=== PATIENT | female | born 1970 | race Caucasian/White ===

== ENCOUNTER 2020-07-02 14:30 | Emergency (ER) | payer OTHER, SELFPAY ==
[2020-07-02 14:35] VITALS: BP 158/93; PULSE 100; RESP 24; TEMP 36.7; O2SAT 99
--- NOTE | 2020-07-02 14:52 | W.ED.GENAD ---
Discharge Plan Disposition Condition: Stable Discharge Details Chief Complaint: Anxiety Clinical Impression: Anxiety attack, Broken tooth Primary Care Provider: Corin Ernst ED Provider: Kris Brandon Home Meds and New Rx's Prescriptions: New penicillin V potassium 500 mg tablet 500 mg PO QID 10 Days Qty: 40 RF: 0 Continued olanzapine [Zyprexa] 2.5 MG tablet 2.5 mg PO PRN RF: 0 alprazolam [Xanax] 0.5 MG tablet 0.5 mg PO PRN RF: 0 gemfibrozil 600 MG tablet 600 mg PO BID RF: 0 omeprazole [Prilosec] 20 MG capsule,delayed release(DR/EC) 20 mg PO DAILY RF: 0 lamotrigine [Lamictal] 100 MG tablet 100 mg PO DAILY RF: 0 venlafaxine [Effexor XR] 150 MG capsule,extended release 24hr 300 mg PO DAILY RF: 0 metformin 750 MG tablet extended release 24 hr 1,500 mg PO q am RF: 0 nitroglycerin [Nitrostat] 0.4 MG tablet, sublingual 0.4 mg Sublingual ONCE RF: 0 cholecalciferol (vitamin D3) 5,000 UNIT tablet 5,000 unit PO DAILY RF: 0 zolmitriptan [Zomig] 5 MG tablet 5 mg PO PRN Qty: 9 RF: 3 valacyclovir 1 gram tablet 1,000 mg PO BID RF: 0 Discharge Instructions Instructions: Acute Dental Trauma (ED), Anxiety (ED) Additional Instructions: Please take penicillin as prescribed. May use dental wax for comfort. This is nontoxic and not harmful if accidentally swallowed. Warm salt water gargle, swish and spit for comfort. Please call your dentist to make an appointment for follow-up of broken tooth. Return to ER for any acute concerns. Medical Decision Making 49-year-old female who felt that she broke her tooth last night while chewing. Since that time she had left lower molar discomfort and building anxiety feeling that she could not breathe. She took 0.25 mg of Xanax with minimal improvement at home. She stated she became more more worried about that she was having inability to get air through her mouth. No drooling or change to voice. She is able to speak in full sentences. She arrives to the ER quite anxious and mildly tachycardic. Her exam does reveal broken posterior lingual cusp of tooth #18. There is no significant fluctuance present. She was given an additional 0.5 mg of Xanax and observed. She was given dental wax for comfort. I will place her on a course of penicillin for a early apical infection and she will follow-up with dentistry. HPI General Mode of arrival: ambulatory. Date/Time Provider Initiated Documentation: 07/02/20 14:31. Limitations to Documentation: no limitations. Information obtained by: patient. History of Present Illness 49 year old F presents to the emergency department with the chief complaint of Left lower tooth fracture last night, anxiety today, described as moderate, and is localized to the head and mouth. Patient reports no radiation. Patient started experiencing this minute(s) and it has been other (Improving). No relieving factors improve symptom(s), No exacerbating factors reported . Patient notes other (Anxious); denies chest pain, fever/chills, headaches, loss of appetite, nausea/vomiting and syncope. Patient did receive the following treatments prior to arrival, other (Took Xanax 0.25 mg) Related Data Home Medications Medication Instructions Recorded Confirmed alprazolam [Xanax] 0.5 mg PO PRN tab-cap 03/23/14 07/02/20 gemfibrozil 600 mg PO BID tab-cap 03/23/14 07/02/20 lamotrigine [Lamictal] 100 mg PO DAILY tab-cap 03/23/14 07/02/20 olanzapine [Zyprexa] 2.5 mg PO PRN tab-cap 03/23/14 07/02/20 omeprazole [Prilosec] 20 mg PO DAILY tab-cap 03/23/14 07/02/20 venlafaxine [Effexor XR] 300 mg PO DAILY tab-cap 07/06/15 07/02/20 metformin 1,500 mg PO q am tab-cap 11/17/15 07/02/20 cholecalciferol (vitamin D3) 5,000 unit PO DAILY 08/21/17 07/02/20 nitroglycerin [Nitrostat] 0.4 mg SUBLINGUAL ONCE tab-cap 08/21/17 07/02/20 zolmitriptan [Zomig] 5 mg PO PRN #9 tab-cap 05/13/18 07/02/20 penicillin V potassium 500 mg PO QID 10 Days #40 tab 07/02/20 valacyclovir 1,000 mg PO BID 07/02/20 07/02/20 Previous Rx's Medication Instructions Recorded zolmitriptan [Zomig] 5 mg PO PRN #9 tab-cap 05/13/18 penicillin V potassium 500 mg PO QID 10 Days #40 tab 07/02/20 Allergies Allergy/AdvReac Type Severity Reaction Status Date / Time sumatriptan [From Imitrex] Allergy Severe Unverified 07/02/20 14:37 zolmitriptan [From Zomig] Allergy Intermediate Itching Unverified 07/02/20 14:37 General Stated Complaint: Anxiety MORALES: 2 Review of Systems Narrative: No difficulty swallowing, no change to voice. No drooling. No chest pain or cough. No nausea or vomiting. Anxious and stressed at home. 6 systems reviewed and otherwise negative. [facility] Social History Smoking/Tobacco Use Status: Current every day Tobacco Type: cigarettes Alcohol Intake: never Drug use: Daily Substance use type: marijuana Do you feel safe at home: Yes Do you feel safe in your relationship?: Yes Exam Narrative Exam Narrative: GEN: awake, alert, oriented 3. Anxious. HEAD: Normocephalic, atraumatic ENT: Mucous membranes moist, oropharynx with broken posterior lingual cusp of tooth 18, External ear exam unremarkable EYES: PERRL, EOMI NECK: Full ROM, no ASHLEIGH, no menigismus CHEST/RESP: Nontender, clear to auscultation bilateral, no wheeze/rhonchi/rales CARDIOVASCULAR: RRR, no murmur, rub edson. 2+ Rad pulse bilateral EXT: Full ROM, no edema, no rash Neuro: Grossly normal neurologic exam, conversant, interactive. Psych: Speech fluent, thoughts congruent, affect anxious Course Vital Signs Vital signs: Vital Signs Temperature 36.7 C 07/02/20 14:35 Pulse 100 H 07/02/20 14:35 Respiratory Rate 24 07/02/20 14:35 Blood Pressure 158/93 H 07/02/20 14:35 Pulse Oximetry 99 07/02/20 14:35 Temperature 36.7 C 07/02/20 14:35 Temperature Source Skin 07/02/20 14:35 Pulse 100 H 07/02/20 14:35 Respiratory Rate 24 07/02/20 14:35 Respiratory Effort 07/02/20 14:41 Blood Pressure 158/93 H 07/02/20 14:35 Blood Pressure Position Sitting 07/02/20 14:35 Pulse Oximetry 99 07/02/20 14:35 Oxygen Delivery Method Room Air 07/02/20 14:35 Oxygen Flow Rate 0 07/02/20 14:35 Pain Level 0 07/02/20 14:35
[2020-07-02] MEDS: ALPRAZolam 0.25 MG TAB 0.5 MG PO (14:56)
[2020-07-02 14:57] VITALS: RESP 20
[2020-07-02 15:23] VITALS: BP 127/82; PULSE 82; RESP 16; O2SAT 95
== END 2020-07-02 15:20 | disposition home or self-care (01) ==
LOC: ER 15:20
PROVIDERS: Emergency Provider Emergency Medicine
DX: S02.5XXA Fracture of tooth (traumatic), initial encounter for closed fracture (principal); X58.XXXA Exposure to other specified factors, initial encounter; F41.0 Panic disorder [episodic paroxysmal anxiety]
CPT/HCPCS: 99283